=== PATIENT | female | born 1985 | race Caucasian/White ===

== ENCOUNTER 2021-08-20 20:03 | Emergency (ER) | payer OTHER ==
[~2021-08-20] VITALS: Ht 152.4 cm; Wt 106.6 kg
[2021-08-20 20:33] VITALS: BP 126/82
[2021-08-20] MEDS ORDERED: METFORMIN HCL500 M3 PO (20:37)
[2021-08-20] MEDS ORDERED: LEVO-T100 MCG PO (20:37)
[2021-08-20] MEDS ORDERED: VITAMIN D210 MCG PO (20:38)
[2021-08-20] MEDS ORDERED: LABETALOL HCL100 MG PO (20:38)
[2021-08-20] MEDS ORDERED: SUPER THERAVIT1 EACH PO (20:38)
== END 2021-08-20 21:43 | disposition home or self-care (01) ==
LOC: M.ERS 20:03
DX: M79.622 Pain in left upper arm (principal); I10 Essential (primary) hypertension; E03.9 Hypothyroidism, unspecified